=== PATIENT | female | born 2000 | race Caucasian/White ===

== ENCOUNTER 2022-08-09 18:06 | Emergency (ER) | payer OTHER, SELFPAY ==
[2022-08-09 18:13] VITALS: BP 117/73; PULSE 78; RESP 20; TEMP 36; O2SAT 99; BMI 24.0
[2022-08-09 19:08] LABS: Strep A DNA Probe* DETECTED (Not Detectd)
[2022-08-09 19:12] LABS: PCR FLU A Negative PCR FLU A (Negative); PCR FLU B Negative PCR FLU B (Negative); PCR RSV Negative PCR RSV (Negative)
--- NOTE | 2022-08-09 19:26 | ED_ITS ---
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 She has had a sore throat and upper respiratory congestion over the last couple of days. She is swallowing well, no unilaterally to her sore throat. No cough no chest pain. She has a positive rapid strep test Related Data Allergies Allergy/AdvReac Type Severity Reaction Status Date / Time amoxicillin Allergy Verified 08/09/22 18:13 Penicillins Allergy Verified 08/09/22 18:13 Review of Systems Narrative: Not a recurrent strep patient PFSH [facility] Social History Smoking Status: Never smoker Do you use any of these nicotine containing products: None Second hand tobacco smoke exposure: No How often do you have a drink containing alcohol: never How often do you have six or more drinks on one occasion: Never AUDIT-C Alcohol total score: 0 Non-prescribed substance use: denies use service: No Exam Narrative: Exam Narrative: Objective: Patient's vital signs unremarkable HEENT is unremarkable other than reddened throat. Full range of motion the neck Const: Vital Signs, click to edit/add: Vital Signs - 24 hr 08/09/22 18:13 Temperature 96.8 F L Pulse Rate [Pulse Oximeter] 78 Respiratory Rate 20 Blood Pressure [Ri ght Upper Arm] 117/73 Pulse Oximetry 99 Oxygen Delivery Me thod Room Air Course Vital Signs Vital signs: Initial Vital Signs Temperature 96.8 F L 08/09/22 18:13 Temperature Source Temporal Artery Scan 08/09/22 18:13 Pulse Rate 78 08/09/22 18:13 Pulse Rhythm 08/09/22 18:13 Respiratory Rate 20 08/09/22 18:13 Blood Pressure 117/73 08/09/22 18:13 Blood Pressure Mean 87 08/09/22 18:13 Blood Pressure Position Sitting 08/09/22 18:13 Pulse Oximetry 99 08/09/22 18:13 Oxygen Delivery Method 08/09/22 18:13 Vital Signs Temperature 96.8 F L 08/09/22 18:13 Pulse Rate 78 08/09/22 18:13 Respiratory Rate 20 08/09/22 18:13 Blood Pressure 117/73 08/09/22 18:13 Pulse Oximetry 99 08/09/22 18:13 Oxygen Delivery Method 08/09/22 18:13 Temperature 96.8 F L 08/09/22 18:13 Pulse Rate 78 08/09/22 18:13 Respiratory Rate 20 08/09/22 18:13 Blood Pressure 117/73 08/09/22 18:13 Pulse Oximetry 99 08/09/22 18:13 Oxygen Delivery Method 08/09/22 18:13 Medical Decision Making MDM Narrative Medical decision making narrative: 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 She is allergic to penicillin. Will give her Keflex 500 now and then 500 b.i.d. times 10 days. Medicines were given out of [place] meds. Tylenol Advil as needed. Recheck with primary care as needed. Would recommend being out of school tomorrow Lab Data Labs: Lab Results 08/09/22 08/09/22 Range/Units 18:23 18:23 SARS-CoV-2 (PCR) Negative SARS-CoV-2 (Negative) Influenza Type A (PCR) Negative PCR FLU A (Negative) Influenza Type B (PCR) Negative PCR FLU B (Negative) RSV (PCR) Negative PCR RSV (Negative) Group A Strep DNA DETECTED A (Not Detectd) Discharge Plan Discharge Clinical Impression: Strep throat Patient Disposition: Home, Self-Care Condition: Stable Additional Instructions: Keflex 2 times a day for 10 days, Tylenol Advil as needed, would recommend being off school tomorrow, may return the following day. Return to ED as needed. Activity Level: Light activity Discharge Diet: Regular Stand Alone Forms: [employer] Info Instructions
[2022-08-09 19:29] LABS: SARS PCR* Negative SARS-CoV-2 (Negative)
[2022-08-09] MEDS: cephALEXin 500 MG CAPSULE PO (19:29)
== END 2022-08-09 19:53 | disposition home or self-care (01) ==
PROVIDERS: Emergency Provider Family Medicine
DX: J02.0 Streptococcal pharyngitis (principal)
CPT/HCPCS: 87502; 87634; 87635; 87651; 99283; A9270